=== PATIENT | male | born 1975 | race Caucasian/White ===

== ENCOUNTER 2020-07-11 12:50 | Emergency (ER) | payer OTHER, SELFPAY ==
--- NOTE | 2020-07-11 12:59 | ED.URI ---
HPI - URI/Sore Throat General Chief Complaint: Upper Respiratory Infection Stated Complaint: sore throat/fever/vázquez/chills/ear pain Time Seen by Provider: 07/11/20 13:12 Source: patient and RN notes reviewed Mode of arrival: ambulatory Limitations: no limitations History of Present Illness HPI Narrative: 44-year-old male presents concern for 3-day history of sore throat, fever, chills, body aches, some shortness of breath with activity. He denies cough, loss of sense of taste or smell, rhinorrhea, nasal congestion. Reports he was seen at [facility] yesterday and had a negative rapid Covid, negative influenza A/B, negative strep. Reports [facility] is sending a strep culture. Reports he was not treated with any antibiotic at [facility]. MD elicited complaint: sore throat Related Data Home Medications Medication Instructions Recorded Confirmed Apresoline 07/11/20 Claritin 07/11/20 Flexeril 07/11/20 Flonase 07/11/20 K+ Potassium 07/11/20 Lactaid 07/11/20 Lopid 07/11/20 Zaditor 07/11/20 amlodipine 07/11/20 aspirin 07/11/20 atorvastatin 07/11/20 azelastine INTRANASAL 07/11/20 budesonide mg 07/11/20 omeprazole 07/11/20 spironolactone 07/11/20 torsemide 07/11/20 Allergies Allergy/AdvReac Type Severity Reaction Status Date / Time clonidine Allergy Unknown Rash Verified 07/17/17 15:08 metoprolol Allergy Unknown Rash Verified 07/17/17 15:08 Review of Systems Review of Systems: Narrative: CONSTITUTIONAL: Reports malaise, chills, sweats, and fever. EYES: Denies visual changes, redness, or discharge. ENT: Denies rhinorrhea, congestion, sinus pain. Reports otalgia and sore throat. CARDIOVASCULAR: Denies chest pain, palpitations, or edema. RESPIRATORY: Denies cough. Reports occasional dyspnea. GASTROINTESTINAL: Denies abdominal pain, nausea, vomiting, diarrhea SKIN: Denies rash or itching. MUSCULOSKELETAL: Reports myalgia. NEUROLOGIC: Denies headache. All systems reviewed & are unremarkable except as noted in HPI and below PMFSH Family History Family History (Updated 12/08/15 @ 23:19 by DOCTOR UNKNOWN) Sibling Family history of thyroid disease Family history of diabetes mellitus in first degree relative Mother Hypertension Family history of elevated blood lipids Family history of diabetes mellitus in first degree relative Patient's mother is Social History Social History Smoking status: Never smoker Second hand tobacco smoke exposure: No Alcohol intake: never Comments At time of signature, agree with nursing past medical, surgical, social and family history. There is no relevant family history pertinent to the presenting complaint Exam Narrative: Exam Narrative: GENERAL: Well-appearing, well-nourished, and in no acute distress. HEAD: Normocephalic EYES: PERRLA, conjunctivae clear ENT: Nares clear, turbinates erythematous. Mucous membranes moist. TM pearly horn with dull light reflex bilaterally; no tragal tenderness. Oropharynx erythematous without lesions. Tonsils enlarged and with right tonsillar copious exudate, no drooling, no hoarseness, no trismus, uvula midline. NECK: Supple. No lymphadenopathy CHEST: Clear to auscultation, breath sounds equal. No wheezing, rhonchi, rales, or stridor. No respiratory distress, speaks in full sentences. HEART: Regular rate and rhythm. No murmur heard. SKIN: Warm, dry, no rash. NEURO: Alert and oriented x3. PSYCH: Normal mood and affect Course Course Emergency Course: Patient is aware of diagnosis, understands and agrees to treatment plan. Anticipatory guidance given. Patient agrees to follow-up as directed and is aware of reasons to seek care at the emergency department. Portions of this record may have been created with voice recognition software Vital Signs Vital signs: Vital Signs Temperature 99.1 F 07/11/20 13:07 Pulse Rate 108 H 07/11/20 13:07 Respiratory Rate 28 H 07/11/20 13:07 Blood P
[2020-07-11 13:07] VITALS: BP 143/89; PULSE 108; RESP 28; TEMP 37.3; O2SAT 99
[2020-07-11 13:14] VITALS: BP 143/89; PULSE 108; RESP 28; TEMP 37.3; O2SAT 99
[2020-07-12 17:59] LABS: SARS-CoV-2 RNA PCR Negative
== END 2020-07-11 13:27 | disposition home or self-care (01) ==
PROVIDERS: Emergency Provider Nurse Practitioner
DX: J03.90 Acute tonsillitis, unspecified (principal); Z20.822 Contact with and (suspected) exposure to COVID-19; I10 Essential (primary) hypertension
CPT/HCPCS: 99213; C9803; G0463; U0003; U0005

== ENCOUNTER 2022-10-19 18:45 | Emergency (ER) | payer OTHER, SELFPAY ==
[2022-10-19 18:53] VITALS: BP 130/81; PULSE 107; RESP 14; TEMP 36.6; O2SAT 98
--- NOTE | 2022-10-19 19:08 | ED.SKABFB ---
HPI - Skin/Abscess/Foreign Bdy General Chief complaint: Skin/Abscess/Foreign Body Stated complaint: Skin Problem Time Seen by Provider: 10/19/22 19:08 Source: patient Mode of arrival: ambulatory Limitations: no limitations History of Present Illness HPI narrative: 47 yo M presents with insect bites to bilateral LEs and a few to trunk. Noticed yesterday. States very itchy . Used benadryl spray with no relief. Yesterday was out in tall grasses at work. No other complaints today. all systems reviewed and negative except as noted above. Related Data Home Medications Medication Instructions Recorded Confirmed amitriptyline 50 mg tablet 50 mg PO DAILY 10/19/22 10/19/22 atorvastatin 80 mg tablet 40 mg PO DAILY 10/19/22 10/19/22 bupropion HCl 150 mg 24 hr tablet, 150 mg PO TID 10/19/22 10/19/22 extended release fluticasone propionate 50 50 mcg intranasal DAILY 10/19/22 10/19/22 mcg/actuation nasal spray,suspension gabapentin 300 mg capsule 300 mg PO BID 10/19/22 10/19/22 liraglutide (weight loss) 3 mg/0.5 9 mg subcut DAILY 10/19/22 10/19/22 mL (18 mg/3 mL) subcut pen injector (Saxenda) omeprazole 40 mg capsule,delayed 40 mg PO DAILY 10/19/22 10/19/22 release potassium chloride 10 mEq 10 meq PO DAILY 10/19/22 10/19/22 tablet,extended release tadalafil 20 mg tablet 20 mg PO WEEKLY 10/19/22 10/19/22 terazosin 1 mg capsule 1 mg PO DAILY 10/19/22 10/19/22 trazodone 50 mg tablet 50 mg PO QPM PRN Sleep 10/19/22 10/19/22 Allergies Allergy/AdvReac Type Severity Reaction Status Date / Time clonidine Allergy Unknown Rash Verified 10/19/22 19:10 metoprolol Allergy Unknown Rash Verified 10/19/22 19:10 Review of Systems Review of Systems: CONSTITUTIONAL: Denies fever, chills, or sweats. EYES: Denies visual changes, redness, or discharge. ENT: Denies rhinorrhea, congestion, sore throat, or otalgia. CARDIOVASCULAR: Denies chest pain, palpitations, or edema. RESPIRATORY: Denies cough or dyspnea. GASTROINTESTINAL: Denies abdominal pain, nausea, vomiting, or diarrhea. GENITOURINARY: Denies dysuria or hematuria. SKIN: Reports multiple insect bites to lower extremities and trunk with itching. MUSCULOSKELETAL: Denies back pain, joint pain, or myalgia. NEUROLOGIC: Denies headache, numbness, or weakness. PSYCHIATRIC: Denies anxiety or depression. All other systems reviewed are negative, except as documented in HPI. [facility] Family History Family History (Updated 12/08/15 @ 23:19 by DOCTOR UNKNOWN) Sibling Family history of thyroid disease Family history of diabetes mellitus in first degree relative Mother Hypertension Family history of elevated blood lipids Family history of diabetes mellitus in first degree relative Patient's mother is Social History Social History Smoking status: Never smoker Second hand tobacco smoke exposure: No Alcohol intake: never Comments At time of signature, agree with nursing past medical, surgical, social and family history. There is no relevant family history pertinent to the presenting complaint. Exam Narrative: GENERAL: This is a well-nourished, well-developed patient, in no apparent distress. HEAD: normocephalic, atraumatic. EYES: PERRL. Sclera clear/white. Vision is grossly intact. EARS: External ears normal NOSE: External nose normal NECK: Neck supple, non-tender without lymphadenopathy, masses or thyromegaly. CARDIOVASCULAR: Regular rate and rhythm without murmurs, gallops, or rubs. RESPIRATORY: Clear to auscultation. Breath sounds equal bilaterally. No wheezes, rales, or rhonchi. SKIN: warm, Dry, intact with no suspicious lesions or rash, good texture and turgor. multiple erythematous papules to bilatearl lower extremities. no signs of infection. papules less than 1 cm diameter. NEURO: awake, alert, and oriented to person, place and time. There were no obvious focal neurologic abnormalities. EXTREMITIES: No joint tenderness, effusio
== END 2022-10-19 19:25 | disposition home or self-care (01) ==
PROVIDERS: Emergency Provider Nurse Practitioner Family
DX: S80.862A Insect bite (nonvenomous), left lower leg, initial encounter (principal); S80.861A Insect bite (nonvenomous), right lower leg, initial encounter; W57.XXXA Bitten or stung by nonvenomous insect and other nonvenomous arthropods, initial encounter; E78.00 Pure hypercholesterolemia, unspecified; I10 Essential (primary) hypertension; J45.990 Exercise induced bronchospasm; E11.9 Type 2 diabetes mellitus without complications
CPT/HCPCS: 99213; G0463